=== PATIENT | female | born 1960 | race Caucasian/White ===

== ENCOUNTER 2018-09-03 07:33 | Observation (INO) | payer BC ==
[2018-09-01 15:05] LABS: BASOPHILS % 0.6 % (0.0-1.0); HEMATOCRIT 37.2 % (34.2-44.1); HEMOGLOBIN 11.6 g/dL (12.0-16.0); LYMPHOCYTES # (AUTO) 2.3 (1.0-3.2); LYMPHOCYTES % 34.3 % (18.0-39.1); MEAN CORPUSCULAR HEMOGLOBIN 28.4 pg (28-32); MEAN CORPUSCULAR HGB CONC 31.2 g/dL (31-35); MEAN CORPUSCULAR VOLUME 91.2 fL (81-99); MONOCYTES # (AUTO) 0.5 (0.2-0.8); MONOCYTES % 8.1 % (4.4-11.3); NEUTROPHILS # (AUTO) 3.7 (2.1-6.9); NEUTROPHILS % 56.8 % (38.7-80.0); PLATELET COUNT 304 x10e3/uL (140-360); RED BLOOD COUNT 4.08 x10e6/uL (3.6-5.1); RED CELL DISTRIBUTION WIDTH 13.8 % (11.7-14.4)
[2018-09-01 15:17] LABS: INR 0.82; PROTHROMBIN TIME 12.1 seconds (11.9-14.5)
[2018-09-01 15:18] LABS: PARTIAL THROMBOPLASTIN TIME 28.9 seconds (23.8-35.5)
[2018-09-01 15:24] LABS: ANION GAP 11.3 mmol/L (8-16); BLOOD UREA NITROGEN 14 mg/dL (7-26); BUN/CREATININE RATIO 16 (6-25); CARBON DIOXIDE 27 mmol/L (22-29); CHLORIDE 104 mmol/L (98-107); EST GLOMERULAR FILTRATION RATE > 60 ML/MIN (60-); GLUCOSE 87 mg/dL (74-118); POTASSIUM 4.3 mmol/L (3.5-5.1); SODIUM 138 mmol/L (136-145)
--- NOTE | 2018-09-01 15:48 | Diagnostic Imaging Report ---
EXAMINATION: PA and lateral views of the chest. COMPARISON: None CLINICAL HISTORY: Preop for spinal surgery DISCUSSION: Lines/tubes: None. Lungs: The lungs are well inflated and clear. There is no evidence of pneumonia or pulmonary edema. Pleura: There is no pleural effusion or pneumothorax. Heart and mediastinum: The cardiomediastinal silhouette is normal. Bones and soft tissues: No acute bony abnormalities. Degenerative changes in the thoracic spine IMPRESSION: No acute cardiopulmonary abnormalities. Signed by: Dr. Sathya Amaro M.D. on 09/01/2018 3:44 PM
[~2018-09-03] VITALS: Ht 162.6 cm; Wt 137.0 kg
[~2018-09-03 07:33] MED LIST: ACETAMINOPHEN 1000 MG/100 ML 100 ML IV ONE; ASPIR 8181 MG PO; BACITRACIN 50,000 UNIT VIAL ONE; BUPIVACAINE 0.5%/EPI 30 ML SDV INJ ONE; GABAPENTIN400 MG PO; GELATIN SPONGE 12-7MM ONE; LIDOCAINE HCL (LTA) 4 ML SOLN ONE; LISINOPRIL10 MG PO; METOPROLOL SUCC25 MG PO; STOOL SOFTENER240 MG PO; THROMBIN FOR SOLN 5,000 UNIT VIAL ONE; ULTRAM50 MG PO
--- OUTSIDE RECORDS SUMMARY | 2018-09-03 07:38 | XMS REPORT ---
Author Author [facility] Organization [facility] Address Unknown Phone Unavailable Care Team Providers Care Corporate Strategist Name Role Phone MARIO SERRATO Unavailable Unavailable Payers Payer Name Policy Type Policy Number Effective Date Expiration Date Problems This patient has no known problems. Allergies, Adverse Reactions, Alerts Allergy Name Allergy Type Status Severity Reaction(s) Onset Date Inactive Date Treating Clinician Comments calcium carbonate DA Active U 2016-06-05 00:00:00 aspirin DA Active U 2016-06-05 00:00:00 acetaminophen DA Active U 2016-06-05 00:00:00 Medications This patient has no known medications. Results Test Description Test Time Test Comments Text Results Atomic Results Result Comments CHEST 2 VIEWS 2018-09-01 15:44:00 [place] [address] Patient Name: LISA RODRIGUEZ MR #: [id number] : 1960 Age/Sex: 57/F Req #: [id number] [facility] Physician: Ordered by: MARIO SERRATO MD Report #: [id number] Location: OR Room/Bed: Procedure: [id number] DX/CHEST 2 VIEWS Exam Date: 09/01/18 Exam Time: 1435 REPORT STATUS: Signed EXAMINATION: PA and lateral views of the chest. CO MPARISON: None CLINICAL HISTORY: Preop for spinal surgery DISCUSSION: Lines/tubes: None. Lungs: The lungs are well inflated and clear. There is no evidence of pneumonia or pulmonary edema. Pleura: There is no pleural effusion or pneumothorax. Heart and mediastinum: The cardiomediastinal silhouette is normal. Bones and soft tissues: No acute bony abnormalities. Degenerative changes in the thoracic spine IMPRESSION: No acute cardiopulmonary abnormalities. Signed by: Dr. Gail Edwards M.D. on 09/01/2018 3:44 PM Dictated By: GAIL EDWARDS MD [id number] Transcribed By: EDVIN on 09/01/18 1544 COPY TO: MARIO SERRATO MD
[2018-09-03] MEDS ORDERED: CEFAZOLIN SOD 1 GM/NS 50ML 100 ML IV ONE ×3 (07:39)
[2018-09-03] MEDS ORDERED: ONDANSETRON HCL INJ 2MG/ML 2ML 2 MG/ML VIAL IV PRN (10:30)
[2018-09-03] MEDS ORDERED: HYDROMORPHONE 2MG/ML 2 MG/ML ML IV PRN (10:30)
[2018-09-03] MEDS ORDERED: TRAMADOL HCL 50 MG TAB PO SCH (10:30)
[2018-09-03] MEDS ORDERED: MORPHINE SULFATE 5 MG/ML VIAL IM PRN (10:30)
[2018-09-03] MEDS ORDERED: ACETAMINOPHEN 325 MG TAB PO PRN (10:30)
[2018-09-03] MEDS ORDERED: CARISOPRODOL 350 MG TAB PO PRN (10:30)
[2018-09-03] MEDS ORDERED: PROMETHAZINE HCL (IM) 25 MG/ML VIAL IM PRN (10:30)
[2018-09-03] MEDS ORDERED: MAGNESIUM/ALUMINUM/SIMETHICONE 30 ML UDC PO PRN (10:30)
[2018-09-03] MEDS ORDERED: ZOLPIDEM TARTRATE 5 MG TAB PO PRN (10:30)
[2018-09-03] MEDS ORDERED: OXYCODONE/ACETAMINOPHEN 5-325 1 EACH TABLET PO PRN ×2 (10:30→14:15)
[2018-09-03] MEDS ORDERED: CEPACOL SORE THROAT LOZENGES PO PRN (10:30)
[2018-09-03 13:00] VITALS: BP 120/57
--- NOTE | 2018-09-03 13:00 | NUR ---
Received patient from Recovery phase 2. AAOX4 to time, person, place, situation.Respirations even and unlabored. Dressing to neck clean, dry, and intact. On soft c-collar. Instructed to use call light for assistance. Will continue to monitor.
--- NOTE | 2018-09-03 13:35 | NUR ---
Report given to Reyna FRAIRE of patient's status. Transferred to Room 114. Accompanied by
--- NOTE | 2018-09-03 13:45 | NUR ---
Received patient from PACU. Patient A/O X3, even respirations on RA. Bowel sounds hypoactive, skin intact, 1+ non-pitting edema in feet. C-collar in place, neck dressing dry/intact. Right hand 20 gauge IV with LR @ 120 mls/hr. Patient is ambulatory with assist. at bedside, call light in reach. Will continue to monitor.
--- NOTE | 2018-09-03 13:50 | NUR ---
Patient has voided since surgery.
[2018-09-03] MEDS ORDERED: TRAMADOL HCL 50 MG TAB PO PRN ×2 (14:00→14:15)
[2018-09-03 14:11] VITALS: BP 124/60
[2018-09-03] MEDS ORDERED: DOCUSATE SODIUM 100 MG CAP PO PRN (14:15)
[2018-09-03 14:20] VITALS: BP 124/60
[2018-09-03] MEDS: LACTATED RINGER'S 1,000 ML IV SCH ×2 (15:28→18:31)
[2018-09-03] MEDS: GABAPENTIN 400 MG CAP PO SCH ×2 (15:28→21:49)
[2018-09-03] MEDS: CEFAZOLIN SOD 1 GM/NS 50ML 50 ML IV SCH (15:28)
[2018-09-03 16:59] VITALS: BP 135/67
--- NOTE | 2018-09-03 17:23 | Operative Report ---
DATE OF PROCEDURE: 09/03/2018 SURGEON: Supa Luna MD PREOPERATIVE DIAGNOSES: C5-6 spondylosis and disk herniation with foraminal stenosis and radiculopathy, M50.122. POSTOPERATIVE DIAGNOSES: C5-6 spondylosis and disk herniation with foraminal stenosis and radiculopathy, M50.122. PROCEDURES: 1. C5-6 anterior cervical diskectomy and microsurgical osteophyte resection and allograft fusion, 66030. 2. Preparation of MTF corticocancellous allograft, 60903. 3. C5-6 anterior cervical plating with Synthes ZPN plate, 01353. ANESTHESIA: General. INDICATIONS: The patient is a 57-year-old woman, who presents with C5-6 spondylosis and disk herniation and was taken to the operating room for C5-6 anterior cervical decompression and fusion. PROCEDURE IN DETAIL: After induction of general anesthesia, the patient was placed on the operating table in supine position. The right side of the neck was prepped and draped in sterile fashion. The fluoroscopic C-arm was positioned in cross-table lateral orientation. A small transverse incision was created on the right side of the neck, superimposed on the C5-6 disk space as determined by lateral fluoroscopy. The platysma was divided in line with the incision and subplatysmal dissection was carried out and avascular plane of the dissection was developed medially in sternocleidomastoid muscle and was followed medially to the carotid sheath to the anterior part of the cervical spine. The deep cervical fascia was opened and the esophagus was retracted to the left. The attachments of the longus colli muscles to the anterolateral aspects of vertebral bodies of C5 and C6 were divided. The anterior longitudinal ligament was resected. The Charlotte posts were inserted into C5 and C6 and the Charlotte distractor was used to distract the disk space. The anterior annulus of the disk was incised with #11 blade and the contents of the disk were thoroughly evacuated with angled curettes and pituitary rongeurs. The posterior osteophytes were meticulously drilled with a 2 mm cutting blade on a high speed drill until they were completely removed. The posterior annulus of the disk, herniated disk material, and the posterior longitudinal ligament were resected layer by layer until the dura was fully exposed and decompressed. The medial aspects of the uncinate processes were resected bilaterally to further expose and decompress the origins of the corresponding nerves. After satisfactory decompression had been achieved, the wound was irrigated with Bacitracin solution. Hemostasis was secured. The endplates were prepared for fusion. A piece of MTF corticocancellous allograft was prepared in saline, measuring 8 mm in size. This was then loaded onto a corresponding Synthes ZPN plate. The construct was then inserted into the C5-6 disk space under distraction and fluoroscopic guidance. The distraction was released and distraction ports were removed. The plate was then screwed to the endplates of C5 and C6 with two pairs of 14 mm screws. All 4 screws were locked. An excellent construct was obtained. The wound was copiously irrigated with bacitracin solution. Meticulous hemostasis was secured. Retraction was removed. The platysma was closed with 3-0 Vicryl sutures. The skin was closed with 4-0 Monocryl sutures in subcuticular fashion. Steri-strips and dressing were applied. The patient was awakened, extubated, and taken to postanesthesia care unit in stable condition. No intraoperative complications were encountered. Estimated blood loss was 10 mL. Supa Luna MD PP/MADHURI /[id number]
[2018-09-03] MEDS ORDERED: PROPOFOL IV EMULSION 10 MG/ML 20 ML VIAL ONE (17:40)
[2018-09-03] MEDS ORDERED: LIDOCAINE HCL 2% LOCAL INJ 5 ML SDV VIAL INJ ONE (17:40)
[2018-09-03] MEDS ORDERED: ROCURONIUM BROMIDE 10 MG/ML 5ML VIAL ONE (17:40)
[2018-09-03] MEDS ORDERED: DEXAMETHASONE SOD PHOS INJ 4 MG/ML VIAL ONE (17:40)
[2018-09-03] MEDS ORDERED: ONDANSETRON HCL INJ 2MG/ML 2ML 2 MG/ML VIAL ONE (17:40)
[2018-09-03] MEDS ORDERED: DESFLURANE 240 ML BTL INH ONE (17:40)
[2018-09-03] MEDS ORDERED: FENTANYL CITRATE/PF 100MCG/2 ML INJ ONE (17:53)
[2018-09-03] MEDS ORDERED: MIDAZOLAM HCL 2 MG/2 ML VIAL ONE (17:53)
--- NOTE | 2018-09-03 19:12 | NUR ---
received patient aaox4, sitting in bed. at bedside. denies pain. denies needs. anterior neck drsg c/d/i, soft collar on. bed locked and in lowest position, call light within easy reach. will continue to monitor the patient.
[2018-09-03 20:07] VITALS: BP 123/69
[2018-09-03] MEDS ORDERED: METOPROLOL SUCCINATE 25 MG TAB XL PO SCH (21:00)
[2018-09-04] VITALS: BP 133/69
[2018-09-04] MEDS: CEFAZOLIN SOD 1 GM/NS 50ML 50 ML IV SCH ×2 (00:25→09:00)
[2018-09-04] MEDS: LACTATED RINGER'S 1,000 ML IV SCH ×2 (02:58→11:18)
[2018-09-04 04:00] VITALS: BP 99/54
--- NOTE | 2018-09-04 06:32 | NUR ---
patient left via wheelchair in stable condition, to radiology
--- NOTE | 2018-09-04 06:53 | Diagnostic Imaging Report ---
Cervical Spine Two Views CPT code: 75348 Indication: Postop spine surgery Technique: AP and lateral views of cervical spine obtained. Comparison: None Findings: Cervical vertebral bodies can be visualized to C6. The patient is status post anterior fusion of C5 and C6. Mild prevertebral soft tissue swelling. Fusion plate and artificial disc plug at C5-6 is in appropriate position and is intact. Alignment is maintained on lateral view. Disc space narrowing and end plate osteophytic lipping at C4-5. The facets and spinous processes are normally aligned. Alignment is maintained on the AP view. The dens is intact. The skull base and upper chest are normal. IMPRESSION: Postoperative changes as described above. Signed by: Dr. Densise Starr MD on 09/04/2018 6:49 AM
[2018-09-04] MEDS ORDERED: LISINOPRIL 10 MG TAB PO SCH (09:00)
[2018-09-04] MEDS ORDERED: DOCUSATE SODIUM 100 MG CAP PO SCH (09:00)
[2018-09-04] MEDS: GABAPENTIN 400 MG CAP PO SCH (09:00)
[2018-09-04] MEDS ORDERED: DOCUSATE CALCIUM 250 MG PO SCH (09:00)
[2018-09-04 09:31] VITALS: BP 116/57
--- NOTE | 2018-09-04 10:32 | NUR ---
OOB TO CHAIR, PT STATES "SOMEONE TOLD ME I NEED HARD COLLAR WHEN DISCHARGED", SPOKE WITH MD SERRATO, CLARIFIED NO NEED FOR HARD COLLAR, AND MADE AWARE THAT PT IV WENT BAD BEFORE COMPLETION OF 3RD ANTIBIOTIC, ORDERS NOTED TO "NOT GIVE IT", PT NOTIFIED
[2018-09-04 10:42] VITALS: BP 116/57
--- NOTE | 2018-09-04 12:00 | NUR ---
AMBULATING IN HALLWAY, STEADY GAIT
[2018-09-04 12:27] VITALS: BP 123/73
[2018-09-04] MEDS ORDERED: NORCO 7.5-3251 EACH PO (13:10)
--- NOTE | 2018-09-04 13:29 | NUR ---
DISCHARGE INSTRUCTIONS REVIEWED WITH PT, VERBALIZED UNDERSTANDING, ANTERIOR NECK DRESSING REMOVED, STERI STRIPS INTACT, SOFT COLLAR REPLACED, IV REMOVED, PRESSURE DRESSING APPLIED, SECURED WITH TAPE, TOLERATED WELL
== END 2018-09-04 13:46 | disposition home or self-care (01) ==
LOC: OR 07:33 → PACU V 10:19 → MED/SURG 13:48
PROVIDERS: ADMIT Neurological Surgery; ATTEND Neurological Surgery
DX: M50.122 Cervical disc disorder at C5-C6 level with radiculopathy (principal); M47.22 Other spondylosis with radiculopathy, cervical region; Z01.810 Encounter for preprocedural cardiovascular examination; Z01.812 Encounter for preprocedural laboratory examination; Z01.811 Encounter for preprocedural respiratory examination; I10 Essential (primary) hypertension; E66.01 Morbid (severe) obesity due to excess calories; Z88.8 Allergy status to other drugs, medicaments and biological substances; Z79.82 Long term (current) use of aspirin; Z68.43 Body mass index [BMI] 50.0-59.9, adult
CPT/HCPCS: 20931; 22551; 22845; 36415 ×2; 71046; 72040; 77003; 80048; 82948; 85025; 85610; 85730; 86850; 86900; 88304; 93005; C1713 ×3; C9359; G0378 ×2; J0131; J0690 ×2; J1100; J2001; J2250; J2270; J2405; J2704; J7121

== ENCOUNTER → 2018-10-01 | Outpatient (CLI) | payer BC ==
[~2018-10-01] MED LIST changes: -ACETAMINOPHEN 1000 MG/100 ML 100 ML IV ONE; -BACITRACIN 50,000 UNIT VIAL ONE; -BUPIVACAINE 0.5%/EPI 30 ML SDV INJ ONE; -GELATIN SPONGE 12-7MM ONE; -LIDOCAINE HCL (LTA) 4 ML SOLN ONE; +NORCO 7.5-3251 EACH PO; -THROMBIN FOR SOLN 5,000 UNIT VIAL ONE
--- NOTE | 2018-10-02 08:06 | Diagnostic Imaging Report ---
Cervical spine radiographs-4 views with flexion and extension Indication: Status post cervical fusion. Comparison: Cervical spine radiographs 09/04/2018. Findings: Cervical vertebral bodies can be visualized to the upper aspect of C7. The patient is status post anterior fusion of C5 and C6 with a plate and bilateral screw construct as well as an intervertebral spacer. No evidence of acute fracture or bony malalignment. Flexion and extension radiographs are unremarkable. C1-C2 alignment is maintained. Mild degenerative disc and facet degenerative changes. IMPRESSION: Postoperative changes status post anterior fusion of C5-C6 as described above. Signed by: Dr. Sonal Chung MD on 10/02/2018 8:03 AM
== END ==
LOC: RAD 17:15
PROVIDERS: ATTEND Neurological Surgery
DX: M50.20 Other cervical disc displacement, unspecified cervical region (principal); Z98.1 Arthrodesis status
CPT/HCPCS: 72050

== ENCOUNTER → 2019-02-06 | Outpatient (CLI) | payer BC ==
--- NOTE | 2019-02-06 09:52 | Diagnostic Imaging Report ---
Exam: Cervical spine 2 views flexion extension History: September 04, 2018 Comparison: None. Findings: No fracture. Fusion of C5-C6 with low profile screw construct and interbody cage. Hardware intact. No hypermobility on flexion-extension. Degenerative disc disease at C4-C5. Impression: No acute osseous abnormality Intact fusion C5-C6. No complication. Signed by: Dr. Momo Linares M.D. on 02/06/2019 9:49 AM
== END ==
LOC: RAD 05:00
PROVIDERS: ATTEND Neurological Surgery
DX: M50.30 Other cervical disc degeneration, unspecified cervical region (principal); M43.22 Fusion of spine, cervical region
CPT/HCPCS: 72050